=== PATIENT | female | born 1950 | race Caucasian/White ===

== ENCOUNTER → 2018-11-17 | Outpatient (CLI) | payer MEDICARE, BC ==
--- NOTE | 2018-11-18 08:59 | MM ---
Reason for exam: screening (asymptomatic). Last mammogram was performed 1 year and 3 months ago. History: Patient is postmenopausal. Took estrogen for 8 years 5 months. Physical Findings: A clinical breast exam by your physician is recommended on an annual basis and results should be correlated with mammographic findings. MG 3D Screening Mammo W/Cad Bilateral CC and MLO view(s) were taken. Prior study comparison: August 20, 2017, bilateral MG 3d screening mammo w/cad. November 28, 2015, bilateral MG 3d screening mammo w/cad. There are scattered fibroglandular densities. Small lateral asymmetric density right breast seems to persist on 3D but has no correlate on MLO. Further evaluation recommended. These results were verbally communicated with the patient and result sheet given to the patient on 11/17/18. ASSESSMENT: Incomplete: need additional imaging evaluation, BI-RAD 0 RECOMMENDATION: Special view mammogram of the right breast. (3D) If lesion persists on supplemental views, image directed ultrasound is recommended. [facility] will attempt to contact patient to return for supplemental views and ultrasound if indicated.
== END | disposition home or self-care (01) ==
LOC: RADMAMWWP 07:14
PROVIDERS: ATTEND Family Medicine
DX: Z12.31 Encounter for screening mammogram for malignant neoplasm of breast (principal)
CPT/HCPCS: 77063; 77067

== ENCOUNTER → 2018-11-26 | Outpatient (CLI) | payer MEDICARE, BC ==
--- NOTE | 2018-11-26 14:15 | MM ---
Reason for exam: additional evaluation requested from abnormal screening. Last mammogram was performed less than 1 month ago. History: Patient is postmenopausal. Took estrogen for 8 years 5 months. Physical Findings: Nurse did not find any significant physical abnormalities on exam. MG 3D Work Up W/Cad RT Spot compression CC, CCRM, and LM view(s) were taken of the right breast. Prior study comparison: November 17, 2018, bilateral MG 3d screening mammo w/cad. August 20, 2017, bilateral MG 3d screening mammo w/cad. There are scattered fibroglandular densities. No distinct lesion persists on additional views. These results were verbally communicated with the patient and result sheet given to the patient on 11/26/18. ASSESSMENT: Benign, BI-RAD 2 RECOMMENDATION: Return to routine screening mammogram schedule for both breasts.
== END | disposition home or self-care (01) ==
LOC: RADMAMWWP 13:22
PROVIDERS: ATTEND Family Medicine
DX: R92.8 Other abnormal and inconclusive findings on diagnostic imaging of breast (principal)
CPT/HCPCS: 77065; G0279; 77061

== ENCOUNTER → 2020-03-24 | Outpatient (CLI) | payer MEDICARE, BC ==
--- NOTE | 2020-03-24 13:15 | XR ---
Right foot HISTORY: Right foot pain 3 views of the right foot Soft tissue swelling is noted over the dorsum of the foot. There is degenerative change at the tarsom etatarsal, intertarsal joints. There is a plantar calcaneal spur. No fracture or dislocation. Bone mi neralization, alignment maintained. Degenerative change present at the first metatarsophalangeal join t. IMPRESSION: Osteoarthritis. Plantar calcaneal spur.
== END | disposition home or self-care (01) ==
LOC: RADXRYALE 11:39
PROVIDERS: ATTEND Physician Assistant Medical
DX: M19.071 Primary osteoarthritis, right ankle and foot (principal); M77.31 Calcaneal spur, right foot

== ENCOUNTER → 2021-02-02 | Outpatient (CLI) | payer BC, MEDICARE ==
--- NOTE | 2021-02-05 09:21 | MM ---
Reason for exam: screening (asymptomatic). Last mammogram was performed 1 year and 2 months ago. History: Patient is postmenopausal. Took estrogen for 8 years 5 months. Physical Findings: A clinical breast exam by your physician is recommended on an annual basis and results should be correlated with mammographic findings. MG 3D Screening Mammo W/Cad Bilateral CC and MLO view(s) were taken. Prior study comparison: December 07, 2019, bilateral MG 3d screening mammo w/cad. November 26, 2018, right breast MG 3d work up w/cad RT. November 17, 2018, bilateral MG 3d screening mammo w/cad. There are scattered fibroglandular densities. There are benign appearing round, linear calcifications bilaterally. There is no discrete abnormality. ASSESSMENT: Benign, BI-RAD 2 RECOMMENDATION: Routine screening mammogram of both breasts in 1 year.
== END | disposition home or self-care (01) ==
LOC: RADMAMWWP 12:37
PROVIDERS: ATTEND Family Medicine
DX: Z12.31 Encounter for screening mammogram for malignant neoplasm of breast (principal); Z78.0 Asymptomatic menopausal state
CPT/HCPCS: 77063; 77067

== ENCOUNTER → 2022-04-16 | Outpatient (CLI) | payer MEDICARE, BC ==
--- NOTE | 2022-04-17 10:12 | MM ---
Reason for Exam: Screening (asymptomatic). Last mammogram was performed 1 year(s) and 3 month(s) ago. Patient History: Menarche at age 10. First Full-Term at age 17. Left ovary removed at age 44. Right ovary removed at age 44. Hysterectomy at age 44. Postmenopausal. Estrogen for 8 years, 5 months. Niece had breast cancer, age 45. Risk Values: Little 5 year model risk: 1.4%. NCI Lifetime model risk: 3.6%. Prior Study Comparison: 11/26/2018 Right Diagnostic Mammogram, [facility]. 12/07/2019 Bilateral Screening Mammogram, [facility]. 02/02/2021 Bilateral Screening Mammogram, [facility]. Tissue Density: There are scattered fibroglandular densities. Findings: Analyzed By CAD. There is occasional scattered tiny benign-appearing round and linear calcification throughout the bilateral breasts redemonstrated. Benign-appearing bilateral axillary lymph nodes are again seen. There is no suspicious group of microcalcifications or new suspicious mass in either breast. Overall Assessment: Negative, BI-RAD 1 Management: Screening Mammogram of both breasts in 1 year. A clinical breast exam by your physician is recommended on an annual basis and results should be correlated with mammographic findings. Electronically signed and approved by: Alhaji Irsael M.D.
== END | disposition home or self-care (01) ==
LOC: RADMAMWWP 12:28
PROVIDERS: ATTEND Family Medicine
DX: Z12.31 Encounter for screening mammogram for malignant neoplasm of breast (principal); Z78.0 Asymptomatic menopausal state; Z80.3 Family history of malignant neoplasm of breast
CPT/HCPCS: 77063; 77067

== ENCOUNTER → 2023-04-17 | Outpatient (CLI) | payer MEDICARE, BC ==
--- NOTE | 2023-04-17 13:59 | BD ---
EXAMINATION TYPE: Axial Bone Density DATE OF EXAM: 04/17/2023 CLINICAL HISTORY: 72 years old Female. ICD-10 CODE: DISORDER OF BONE DENSITY AND STRUCTURE M85.9 Height: 65" Weight: 242.1lbs FRAX RISK QUESTIONS: Alcohol (3 or more units per day): No Family History (Parent hip fracture): No Glucocorticoids (More than 3mos): No (Ex: prednisone, prednisolone, methylprednisolone, dexamethasone, and hydrocortisone). History of Fracture in Adulthood: No Secondary Osteoporosis: 1. Type 1 Diabetes: No 2. Hyperthyroidism: No 3. Menopause before 45: No 4. Malnutrition: No 5. Chronic liver disease: No Rheumatoid Arthritis: No Current Tobacco Use: No RISK FACTORS HISTORY OF: Hip Fracture (Right/Left): No Spine Fracture: No History of Wrist Fracture: No Surgery to Spine/Hip(right/left)/Wrist (right/left): No Family History of Osteoporosis: Yes, Mother Active: Yes Diet low in dairy products/other sources of calcium: No Postmenopausal woman: Yes Lost more than 2 inches in height since high school: No Frequent falls: No Poor Health: No Hyperparathyroidism: No Adrenal Insufficiency: No MEDICATIONS: Prednisone or other steroids: No Thyroid Medications: No Osteoporosis Medications: No Additional Medications: Water pill, generic Lipitor for cholesterol, vitamin D, multivitamin Additional History: None EXAM MEASUREMENTS: Bone mineral densitometry was performed using the [employer] System. Bone mineral density as measured about the Lumbar spine is: ----- L1-L4(G/cm2): 1.885 T Score Values are as follows: ----- L1: 3.0 ----- L2: 5.1 ----- L3: 6.8 ----- L4: 7.7 ----- L1-L4: 5.9 Z Score Values are as follows: ----- L1: 3.6 ----- L2: ----- L3: ----- L4: ----- L1-L4: Bone mineral density has: increased 6.2% since study of: 12/07/2019 Bone mineral density about the R hip (g/cm2): 1.244 Bone mineral density about the L hip (g/cm2): 1.260 T Score values are as follows: -----R Neck: 1.2 -----L Neck: 0.8 -----R Total: 1.9 -----L Total: 2.0 Z Score values are as follows: -----R Neck: 2.3 -----L Neck: 1.9 -----R Total: 2.7 -----L Total: 2.8 Bone mineral density has: increased 1.4% since study of: 12/07/2019 FRAX%s: The graph provided illustrates a 5.5% chance for a major osteoporotic fx and a 0.2% chance fo r the hips probability for fx in 10 years time. IMPRESSION: Normal (Values between +1 and -1 indicate normal bone mass). Consider repeating this study in 5 year s or sooner if there is some new clinical indication. NOTE: T-SCORE=SD OF THE YOUNG ADULT MEAN.
--- NOTE | 2023-04-21 19:18 | MM ---
Reason for Exam: Screening (asymptomatic). Last screening mammogram was performed 12 month(s) ago. Patient History: Menarche at age 10. First Full-Term at age 17. Left ovary removed at age 44. Right ovary removed at age 44. Hysterectomy at age 44. Postmenopausal. Estrogen for 8 years, 5 months. Niece had breast cancer, age 45. Risk Values: Little 5 year model risk: 1.4%. NCI Lifetime model risk: 3.4%. Prior Study Comparison: 12/07/2019 Bilateral Screening Mammogram, [facility]. 02/02/2021 Bilateral Screening Mammogram, [facility]. 04/16/2022 Bilateral MG 3D screening mammo w/cad, [facility]. Tissue Density: There are scattered fibroglandular densities. Findings: Analyzed By CAD. There is no suspicious group of microcalcifications or new suspicious mass in either breast. Overall Assessment: Negative, BI-RAD 1 Management: Screening Mammogram of both breasts in 1 year. . Patient should continue monthly self-breast exams. A clinical breast exam by your physician is recommended on an annual basis. This exam should not preclude additional follow-up of suspicious palpable abnormalities. Note on Little scores and lifetime risk: 1. A Little score greater than 3% is considered moderate risk. If this is the case, consider specialist referral to assess eligibility for a risk reducing agent. 2. If overall lifetime risk for the development of breast cancer is 20% or higher, the patient may qualify for future screening with alternating mammogram and breast MRI. Electronically signed and approved by: Thelma Pimentel M.D. Radiologist
== END | disposition home or self-care (01) ==
LOC: RADMAMWWP 12:38
PROVIDERS: ATTEND Family Medicine
DX: Z12.31 Encounter for screening mammogram for malignant neoplasm of breast (principal); Z78.0 Asymptomatic menopausal state
CPT/HCPCS: 77063; 77067; 77080

== ENCOUNTER → 2024-05-19 | Outpatient (CLI) | payer MEDICARE, BC ==
--- NOTE | 2024-05-20 07:26 | MM ---
Reason for Exam: Screening (asymptomatic). Last mammogram was performed 1 year(s) and 1 month(s) ago. Patient History: Menarche at age 10. First Full-Term at age 17. Left ovary removed at age 44. Right ovary removed at age 44. Hysterectomy at age 44. Postmenopausal. Estrogen for 8 years, 5 months. Niece had breast cancer, age 45. Risk Values: Little 5 year model risk: 1.4%. NCI Lifetime model risk: 3.2%. Prior Study Comparison: 02/02/2021 Bilateral Screening Mammogram, [facility]. 04/16/2022 Bilateral MG 3D screening mammo w/cad, [facility]. 04/17/2023 Bilateral MG 3D screening mammo w/cad, [facility]. Tissue Density: There are scattered areas of fibroglandular density. Findings: Analyzed By CAD. Right breast: There is no suspicious group of microcalcifications or new suspicious mass. Left breast: There is no suspicious group of microcalcifications or new suspicious mass. Overall Assessment: Negative, BI-RAD 1 Management: Screening Mammogram of both breasts in [address] [facility] will attempt to contact patient to return for supplemental views and ultrasound if indicated. Patient should continue monthly self-breast exams. A clinical breast exam by your physician is recommended on an annual basis. This exam should not preclude additional follow-up of suspicious palpable abnormalities. Note on Little scores and lifetime risk: 1. A Little score greater than 3% is considered moderate risk. If this is the case, consider specialist referral to assess eligibility for a risk reducing agent. 2. If overall lifetime risk for the development of breast cancer is 20% or higher, the patient may qualify for future screening with alternating mammogram and breast MRI. [facility], , 05/20/2024 7:24 AM. Electronically signed and approved by: Yung Stout DO
== END | disposition home or self-care (01) ==
LOC: RADMAMWWP 15:26
PROVIDERS: ATTEND Family Medicine
DX: Z12.31 Encounter for screening mammogram for malignant neoplasm of breast (principal); R92.323 Mammographic fibroglandular density, bilateral breasts; Z78.0 Asymptomatic menopausal state; Z90.722 Acquired absence of ovaries, bilateral
CPT/HCPCS: 77063; 77067

== ENCOUNTER → 2024-07-02 | Outpatient (CLI) | payer MEDICARE, BC ==
--- NOTE | 2024-07-02 15:49 | US ---
EXAMINATION TYPE: US extremity nonvasc mass LT DATE OF EXAM: 07/02/2024 COMPARISON: NONE CLINICAL INDICATION: Female, 73 years old with history of M79.89 Mass of soft tissue left foot; left lateral foot pain for months, physician felt possible cyst behind ankle bone, patient will also get M RI of foot soon TECHNIQUE: Soft tissue scan FINDINGS: fluid collection noted at lateral left foot just inferior to ankle. Unknown etiology. IMPRESSION: Focal fluid collection in the area of palpable abnormality in the lateral foot correlate with MRI with contrast for further evaluation. [facility], , 07/02/2024 3:46 PM
== END | disposition home or self-care (01) ==
LOC: RADUSWWP 15:01
PROVIDERS: ATTEND Podiatrist Foot & Ankle Surgery
DX: M79.89 Other specified soft tissue disorders (principal)

== ENCOUNTER → 2024-07-15 | Outpatient (CLI) | payer MEDICARE, BC ==
--- NOTE | 2024-07-16 13:45 | MR ---
EXAMINATION TYPE: MR ankle LT wo con DATE OF EXAM: 07/15/2024 9:36 AM COMPARISON: None. CLINICAL INDICATION: Female, 74 years old with history of M76.72 PERONEAL TENDINITIS LEFT LEG; PHH, L t ankle pain, Lt peroneal tendonitis TECHNIQUE: Multi planar, multi sequence imaging was performed. No Gadolinium given. IV Contrast: mL (None.) FINDINGS: LIGAMENTS AND TENDONS: High PD signal around the peroneal longus and peroneal brevis tendons as disc ussed before they cross the ankle. Additionally there is The anterior talofibular ligament, calcaneof ibular ligament, posterior talofibular ligament, tibiofibular ligaments, and deltoid ligament are int act. The anterior compartment, posterior compartment, lateral compartment, and medial compartment te ndons have a normal appearance. The portion of the plantar fascia seen is unremarkable. OSSEOUS STRUCTURES AND CARTILAGE: Scattered degeneration changes throughout the joints of the foot wi th subchondral cystic change and osteophyte formation. Suspected full-thickness cartilage loss of the cartilage of the talar dome with subchondral bony edema on the medial tibial plafond and. The sinus tarsus has a normal signal intensity. The bone marrow signal intensity is within normal limits. Subcutaneous streaky edema seen throughout the joints of the foot. IMPRESSION: 1. No definitive evidence to suggest tendon or ligament injury. 2. Tenosynovitis of the peroneal longus and brevis tendons. 3. Moderate multifocal degeneration changes throughout the joints of the foot with scattered bony ed elizabeth likely secondary to degeneration including the tibial plafond and medial aspect. 4. Mild subcutaneous edema throughout the foot. 07/16/2024 1:32 PM,07/15/2024 9:36 AM,Callie [facility] [facility],MR ankle LT wo con,[id number] [facility], , 07/16/2024 1:42 PM
== END | disposition home or self-care (01) ==
LOC: RADMRIMAIN 08:34
PROVIDERS: ATTEND Podiatrist Foot & Ankle Surgery
DX: M19.072 Primary osteoarthritis, left ankle and foot (principal); M65.972 Unspecified synovitis and tenosynovitis, left ankle and foot; M76.72 Peroneal tendinitis, left leg; M79.89 Other specified soft tissue disorders; R60.0 Localized edema

== ENCOUNTER → 2024-11-29 | Outpatient (CLI) | payer MEDICARE, BC ==
--- NOTE | 2024-11-29 11:56 | XR ---
EXAMINATION TYPE: XR lumbosacral spine 5 views DATE OF EXAM: 11/29/2024 11:16 AM COMPARISON: None CLINICAL INDICATION: Female, 74 years old with history of [id number] DDD; [facility], pain FINDINGS: 5 lumbar type vertebral bodies. Accentuated lower lumbar lordosis. Advanced hypertrophic facet arthro marlon throughout. Degenerative grade 1 retrolisthesis L1-L2, L2-L3, L3-L4. Grade 1 anterolisthesis L5 -S1. Vertebral body heights are preserved. Moderate to severe degenerative disc disease throughout. IMPRESSION: 1. Advanced hypertrophic facet arthropathy with degenerative grade 1 spondylolisthesis L1-L2, L2-L3, L3-L4, and L5-S1. Associated lower lumbar lordosis. 2. Moderate to severe degenerative disc disease throughout. 3. No vertebral compression collapse. [facility], [facility], 11/29/2024 11:54 AM
== END | disposition home or self-care (01) ==
LOC: RADXRYALE 10:56
PROVIDERS: ATTEND Physician Assistant Medical
DX: M51.362 Other intervertebral disc degeneration, lumbar region with discogenic back pain and lower extremity pain (principal); M47.816 Spondylosis without myelopathy or radiculopathy, lumbar region; M43.16 Spondylolisthesis, lumbar region
CPT/HCPCS: 72110